=== PATIENT | female | born 1980 | race Caucasian/White ===

== ENCOUNTER → 2019-02-27 | Outpatient (CLI) | payer OTHER | END | disposition home or self-care (01) | LOC: CFH 08:43 | PROVIDERS: ATTEND Obstetrics & Gynecology | DX: N63.20 Unspecified lump in the left breast, unspecified quadrant (principal); N64.4 Mastodynia | CPT/HCPCS: 76642; 77066; G0279 ==

== ENCOUNTER 2019-03-19 09:26 | Outpatient (CLI) | payer OTHER ==
[2019-03-19] MEDS ORDERED: LIDOCAINE 1%-EPI 1:100K, 20ML ONE (10:00)
[2019-03-19] MEDS ORDERED: LIDOCAINE 1%, 20ML ONE (10:00)
[2019-03-19] MEDS ORDERED: SODIUM BICARBONATE 4.2%, 5ML ONE (10:00)
== END 2019-03-19 23:59 | disposition home or self-care (01) ==
LOC: CFH 09:26
PROVIDERS: ATTEND Obstetrics & Gynecology
DX: N63.22 Unspecified lump in the left breast, upper inner quadrant (principal)
CPT/HCPCS: 19083; 88305; J3490

== ENCOUNTER 2020-10-02 21:42 | Emergency (ER) | payer OTHER ==
[~2020-10-02] VITALS: Ht 154.9 cm; Wt 55.1 kg
[2020-10-02 21:45] VITALS: BP 114/44
--- NOTE | 2020-10-02 23:18 | NUR ---
NO ANS WHEN CALLED FOR ROOM
--- NOTE | 2020-10-02 23:37 | NUR ---
TO ROOM FROM LOBBY.
[2020-10-02] MEDS ORDERED: PLEASE ENTER ALLERGIES MC SCH (23:45)
[2020-10-02] MEDS ORDERED: HYDROcodone/APAP 5/325 TABLET ONE (23:59)
[2020-10-03] MEDS ORDERED: HYDROcodone/APAP 5/325 TABLET PO ONE
[2020-10-03] MEDS ORDERED: OXYcodone/APAP 5/325MG TABLET ONE (00:08)
[2020-10-03] MEDS ORDERED: OXYcodone/APAP 5/325MG TABLET PO ONE (00:30)
--- NOTE | 2020-10-03 01:30 | NUR ---
pain improved to 6/10
== END 2020-10-03 01:24 | disposition home or self-care (01) ==
LOC: ED 23:50
DX: S62.001A Unspecified fracture of navicular [scaphoid] bone of right wrist, initial encounter for closed fracture (principal); S60.211A Contusion of right wrist, initial encounter; M67.431 Ganglion, right wrist; I10 Essential (primary) hypertension; W23.0XXA Caught, crushed, jammed, or pinched between moving objects, initial encounter; Y93.89 Activity, other specified; Y92.410 Unspecified street and highway as the place of occurrence of the external cause; Y99.8 Other external cause status
CPT/HCPCS: 29125; 99283